=== PATIENT | female | born 1990 | race Caucasian/White ===

== ENCOUNTER 2020-03-11 15:23 | Outpatient (REF) | payer OTHER, SELFPAY ==
[2020-03-11 15:55] LABS: COVID-19 Test Negative (Negative); IDNOW Serial# 55D5AD1C
== END 2020-03-11 15:24 | disposition home or self-care (01) ==
LOC: HO.LAB 15:23
PROVIDERS: Visit Provider Internal Medicine
DX: Z20.828 Contact with and (suspected) exposure to other viral communicable diseases (principal)
CPT/HCPCS: 87635; C9803